=== PATIENT | male | born 1970 | race Caucasian/White ===

== ENCOUNTER 2021-01-23 05:40 | Inpatient (IN) ==
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
[2021-01-23] MEDS ORDERED: LR 15ML/HR IV SCH (06:00)
[2021-01-23] MEDS ORDERED: ACETAMINOPHEN 500 MG TAB PO SCH (06:00)
[2021-01-23] MEDS ORDERED: GABAPENTIN 900 MG DOSE PO SCH (06:00)
[2021-01-23] MEDS ORDERED: CeleBREX 200 MG CAP PO SCH (06:00)
[2021-01-23] MEDS ORDERED: ceFAZolin 2000MG 2,000 MG/15 ML SYR IV SCH (06:00)
[2021-01-23] MEDS ORDERED: MIDAZOLAM HCL 1 MG/ML 2ML VIAL ONE (06:53)
[2021-01-23] MEDS ORDERED: ROCURONIUM BROMIDE 10 MG/ML 5 ML VIAL IV ONE (06:53)
[2021-01-23] MEDS ORDERED: ePHEDrine sulfate 50 MG/ML SYR ONE (06:53)
[2021-01-23] MEDS ORDERED: GLYCOPYRROLATE 0.2 MG/ML VIAL ONE (06:53)
[2021-01-23] MEDS ORDERED: PROPOFOL IV EMULSION 10 MG/ML 100 ML VIAL IV ONE (06:53)
[2021-01-23] MEDS ORDERED: fentaNYL citrate 100 MCG/2 ML VIAL ONE (06:53)
[2021-01-23] MEDS ORDERED: NEOSTIGMINE METHYLSULFATE 1 MG/ML 10ML VIAL ONE (06:53)
[2021-01-23] MEDS ORDERED: PHENYLEPHRINE 100MCG/ML 5ML SYR ONE (06:53)
[2021-01-23] MEDS ORDERED: DEXAMETHASONE SOD INJ 4 MG/ML VIAL ONE (06:53)
[2021-01-23] MEDS ORDERED: PROPOFOL IV EMULSION 10 MG/ML 20 ML VIAL IV ONE (06:53)
[2021-01-23] MEDS ORDERED: ONDANSETRON INJ 2 MG/ML 2 ML VIAL ONE (06:53)
[2021-01-23] MEDS ORDERED: ePHEDrine sulfate 50 MG/ML AMP IV PRN (07:25)
[2021-01-23] MEDS ORDERED: HYDROmorphone INJ 2 MG/ML SYR/VIAL IV PRN (07:25)
[2021-01-23] MEDS ORDERED: fentaNYL citrate 100 MCG/2 ML VIAL IV PRN (07:25)
[2021-01-23] MEDS ORDERED: ONDANSETRON INJ 2 MG/ML 2 ML VIAL IV PRN ×2 (07:25→10:45)
[2021-01-23] MEDS ORDERED: ATROPINE SULFATE 0.1 MG/ML 10ML SYR IV PRN (07:25)
[2021-01-23] MEDS ORDERED: PROMETHAZINE HCL 6.25 MG in SODIUM CHLORIDE 0.9% 50 ML IV PRN (07:25)
--- NOTE | 2021-01-23 07:31 | History & Physical Bridge Note ---
Date of Service January 23, 2021 History & Physical Bridge Note I have examined the patient, reviewed the History & Physical and in the interval since the performance of the History & Physical I have noted the following changes of clinical significance: no changes noted
[2021-01-23 07:48] LABS: Partial Thromboplastin Time 26.8 Seconds (21.0-31.0)
[2021-01-23] MEDS ORDERED: KETAMINE 50 MG/5 ML SYRINGE ONE (07:57)
[2021-01-23] MEDS ORDERED: HYDROmorphone INJ 2 MG/ML SYR/VIAL ONE (08:01)
[2021-01-23] MEDS ORDERED: FLOSEAL HEMOSTATIC MATRIX 10ML TOP ONE (08:12)
--- NOTE | 2021-01-23 08:57 | Operative Report ---
Post Operative Report Pre & Post Diagnosis Operation Date: 01/23/21 07:45 Pre-Op Diagnosis: Spinal Stenosis, Cervical Region Post-Op Diagnosis: Spinal Stenosis, Cervical Region I identified the patient and participated in the time-out.: Yes Procedure Operation Date: 01/23/21 07:45 Actual Procedures #1 anterior cervical discectomy with bilateral foraminotomies C6-C7. #2 anterior arthrodesis C6-7. #3 placement 8 mm Spira cage filled with I factor C6-C7. #4 application 5 complete screws across C6-C7. Surgeon Alex Manley, Director Of Rehabilitation Nicole Carrera Estimated Blood Loss 10 Findings Consistent with Post-Op Diagnosis Specimens None Indications This is a 50-year-old male who presents above-mentioned anesthetic failing course of nonoperative care is here for the above-mentioned procedure. Description of Procedure Patient met with identified informed consent obtained. Patient was then taken to the operative suite underwent ablation placed in a supine position on a Jose F table with the head in the Garcia site head. All bony prominences well-padded eyes inspected to ensure no external pressure placed upon the. This point the anterior cervical spine was prepped and draped in a sterile fashion. The assistance of fluoroscopy identified the C6-C7 disc base and a transverse incision was placed along the right anterior aspect of the cervical spinal lines region. Blunt dissection with the assistance of bipolar electrocautery was performed down to and exposing the anterior cervical spine at C6-C7. Self- retaining retractors placed. Then performed a complete discectomy of C6-C7 out to the uncovertebral joints bilaterally. [place] distraction pins utilized to assist in visualization. I removed all posterior annular fibers longitudinal ligament bilateral foraminotomies performed. Endplates were then burred to subcortically bone and a 8 mm spiral cage filled with I factor tapped in position. Distracting apparatus was removed all anterior osteophytes burred to a smooth cortical surface and a 5 complete screws applied with the assistance of fluoroscopy. Incision was then copiously irrigated explored to ensure no damage to surrounding structures remaining bleeding. 10 round HOANG drain inserted. The incision was then closed with 2 Vicryl in a fashion of 4 Monocryl for final skin closure. Steri-Strip sterile dressings placed. Patient will continue PACU stable condition. Please note spinal cord monitoring visualized at the procedure no changes noted. Lastly Nicole Carrera was present at the entire procedure involved the patient positioning complex portions of the surgery and final skin closure. I attest to the content of the Intraoperative Record and any orders documented therein. Any exceptions are noted below.
--- NOTE | 2021-01-23 10:20 | Anesthesiology Progress Note ---
Date of Service January 23, 2021 Anesthesia Post Procedure Vital Signs Vital Signs: Temp Pulse Pulse Resp BP Pulse Ox 01/23/21 10:15 36.6 C 65 13 134/86 95 01/23/21 10:05 36.6 C 72 15 134/79 98 01/23/21 09:55 66 12 141/84 H 96 01/23/21 09:45 74 14 135/89 98 01/23/21 09:35 73 12 156/92 H 100 01/23/21 09:25 74 20 162/104 H 100 01/23/21 09:15 70 14 142/98 H 98 01/23/21 09:05 36.5 C 66 16 146/93 H 96 01/23/21 06:34 37.1 C 65 18 135/99 96 Pain Intensity Neck: Pain Intensity: 0 Transfer of Care Handoff Completed per policy Notes Mental Status: alert / awake / arousable Patient Amnestic to Procedure: Yes Nausea / Vomiting: adequately controlled Pain: adequately controlled Airway Patency, RR, SpO2: stable & adequate BP & HR: stable & adequate Hydration State: stable & adequate Anesthetic Complications: no major complications apparent
[2021-01-23] MEDS ORDERED: RACEPINEPHRINE 2.25% NEBU SOLN 0.5 ML VIAL INH PRN (10:45)
[2021-01-23] MEDS ORDERED: METOCLOPRAMIDE HCL INJ 5 MG/ML 2 ML VIAL IV PRN (10:45)
[2021-01-23] MEDS ORDERED: PROMETHAZINE HCL 12.5 MG in SODIUM CHLORIDE 0.9% 50 ML IV PRN (10:45)
[2021-01-23] MEDS ORDERED: dexAMETHasone 8 MG in SYRINGE 0 ML IV PRN (10:45)
[2021-01-23] MEDS ORDERED: ONDANSETRON 4 MG OD TAB PO PRN (10:45)
[2021-01-23] MEDS ORDERED: LORazepam 0.5 MG TAB PO PRN (10:45)
[2021-01-23] MEDS ORDERED: MAGNESIUM HYDROXIDE SUSP 30 ML UDC PO PRN (10:45)
[2021-01-23] MEDS ORDERED: ACETAMINOPHEN 500 MG TAB PO PRN (10:45)
[2021-01-23] MEDS ORDERED: bisacodyL 10 MG SUPP PR PRN (10:45)
[2021-01-23] MEDS ORDERED: ALUMINUM/MAGNESIUM SUSP 30 ML UDC PO PRN (10:45)
[2021-01-23] MEDS ORDERED: SOD PHOSPHATE/SOD BIPHOSPHATE ENEMA 132 ML BTL PR PRN (10:45)
[2021-01-23] MEDS ORDERED: diphenhydrAMINE Capsule 25 MG CAP PO PRN (10:45)
[2021-01-23] MEDS ORDERED: hydrOXYzine HCl 25 MG TAB PO PRN (10:45)
[2021-01-23] MEDS ORDERED: LACTATED RINGER'S 1,000 ML IV SCH (10:45)
[2021-01-23] MEDS ORDERED: NALOXONE HCL 0.4 MG/1 ML VIAL/CARP IV PRN (10:45)
[2021-01-23] MEDS ORDERED: FAMOTIDINE 20 MG TAB PO PRN (10:45)
[2021-01-23] MEDS ORDERED: oxyCODONE HCL IR 5 MG TAB (IMMEDIATE RELEASE) PO PRN (10:45)
[2021-01-23] MEDS ORDERED: HYDROmorphone INJ 1 MG/ML SYRINGE IV PRN (10:45)
[2021-01-23] MEDS ORDERED: LORazepam 0.5 MG/1 ML VIAL IV PRN (10:45)
[2021-01-23] MEDS ORDERED: traMADol HCL 50 MG TABLET PO PRN (10:45)
[2021-01-23] MEDS ORDERED: DO NOT ADMINISTER FLU VACCINE PRN (10:45)
[2021-01-23] MEDS ORDERED: DO NOT ADMINISTER PNEUMOCOCCAL VACCINE PRN (10:45)
[2021-01-23] MEDS ORDERED: ACETAMINOPHEN 1,000 MG/100 ML VIAL IV PRN (10:45)
[2021-01-23] MEDS ORDERED: HYDROmorphone INJ 0.5 MG/0.5 ML SYR IV PRN (10:45)
[2021-01-23] MEDS: GABAPENTIN 800 MG TAB PO SCH ×4 (11:00→20:31)
--- NOTE | 2021-01-23 12:48 | Fluoroscopy Report ---
INTRAOPERATIVE RADIOGRAPHS CLINICAL HISTORY: C6-C7 spinal fusion. Fluoroscopy time: 10 seconds. FINDINGS: 2 spot fluoroscopic views of the cervical spine are presented. There has been discectomy at C6-C7 with anterior fusion at this level. The orthopedic hardware appears intact. An endotracheal tu be is in place. A surgical drain is noted. IMPRESSION: Intraoperative images from cervical spinal fusion surgery as above. Electronically signed by: Alfredito Farah M.D. 01/23/2021 12:46 PM
[2021-01-23] MEDS: MULTIVITAMIN TAB PO SCH (12:58)
[2021-01-23] MEDS: LITHIUM CARBONATE SLOW REL 300 MG TAB PO SCH ×2 (12:59→20:30)
[2021-01-23] MEDS: CITALOPRAM 40 MG TAB PO SCH (13:00)
[2021-01-23] MEDS: AMPHETAMINE ASP/SULF/DEXTRAMPH 10 MG TAB PO SCH (14:20)
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
[2021-01-23] MEDS: ceFAZolin 2000MG 2,000 MG/15 ML SYR IV SCH ×2 (15:33→23:33)
[2021-01-23] MEDS ORDERED: PANTOprazole 40 MG TAB PO SCH (21:00)
[2021-01-23] MEDS ORDERED: DOCUSATE SODIUM/SENNA 50/8.6MG TAB PO SCH (21:00)
[2021-01-23] MEDS ORDERED: clonazePAM 1 MG TAB PO SCH (21:00)
[2021-01-23] MEDS ORDERED: MIRTAZAPINE TAB 15 MG TAB PO SCH (21:00)
[2021-01-24] MEDS ORDERED: POLYETHYLENE (MIRALAX) 17 GM PACK PO SCH (06:00)
[2021-01-24 06:32] LABS: Hematocrit (blood only) 40.9 % (42-52); Hemoglobin 14.1 g/dL (14.0-18.0); Mean Corpuscular Hemoglobin 32.1 pg (25-34); Mean Corpuscular Hgb Conc 34.5 g/dL (32-36); Mean Corpuscular Volume 93.2 fL (80-100); Mean Platelet Volume 9.4 fL (7.4-10.4); Platelet Count 349 K/uL (130-400); RDW Coefficient of Variation 12.9 % (11.5-14.5); RDW Standard Deviation 43.9 fL (36.4-46.3); Red Blood Count 4.39 M/uL (4.7-6.1); White Blood Count 20.65 K/uL (4.8-10.8)
[2021-01-24 07:07] LABS: BUN Creatinine Ratio 11.2 (10-20); Calcium 9.5 mg/dl (8.5-10.1); Creatinine Clr Calc Pharmacy 82.6 ml/min; Est GFR (African American) 86.4 ml/min; Est GFR (Non-African American) 74.6 ml/min; Potassium 4.2 mmol/L (3.5-5.1)
[2021-01-24] MEDS: CITALOPRAM 40 MG TAB PO SCH (08:51)
[2021-01-24] MEDS: GABAPENTIN 800 MG TAB PO SCH (08:51)
[2021-01-24] MEDS: AMPHETAMINE ASP/SULF/DEXTRAMPH 10 MG TAB PO SCH (08:51)
[2021-01-24] MEDS: MULTIVITAMIN TAB PO SCH (08:51)
[2021-01-24] MEDS: LITHIUM CARBONATE SLOW REL 300 MG TAB PO SCH (08:52)
--- NOTE | 2021-01-24 10:11 | Discharge Summary ---
Date of Service January 24, 2021 Admission HPI Per Admitting Provider This is a 50-year-old male who presents with progressive severe cervicalgia and left arm pain. Is failed extensive course of nonoperative care. Describes pain rating into the interscapular region down his arm into his hand. Medications provided no relief as well as no relief from therapy. He describes strength deficit and coordination issues affecting the left hand. Principal Diagnosis Cervical radiculopathy Discharge Data Allergies Allergy/AdvReac Type Severity Reaction Status Date / Time No Known Allergies Allergy Verified 01/23/21 06:22 Consultations 01/23/21 10:45 Consult Hospitalist Routine Procedures Performed Operation Date: 01/23/21 07:45 Actual Procedures p C6-C7 Anterior Cervical Discectomy and Fusion, Spinal Cord Monitoring(Not Applicable) - Alex Manley DO Ordered Studies 01/23/21 07:45 FL cervical 2-3V Routine Hospital Course (1) Cervical stenosis of spinal canal: Patient underwent anterior cervical discectomy fusion trial exhausting orthopedic for postop labor postop day 1 he was up and ambulating excellent strength testing pain well controlled. Swallowing without difficulty. HOANG drain decreasing appropriately. Subsequently discharged home. Discharge orders instructions were on the chart for further review. Total Time Total Time Spent Total Time Spent (In Minutes): 20 minutes Discharge Plan Discharge Items Patient Disposition: Home - Self-Care Reason For Visit: Spinal Stenosis, Cervical Region Discharge Diagnosis: Cervical radiculopathy Activity: As commented below Non-emergency contact: Primary Care Provider Call non-emergency contact if: you have any medication questions Follow-up/Referrals: Riky Phelps MD [Primary Care Provider] - Diet: Regular Addtl Attending Provider Instructions: ACTIVITY RECOMMENDATIONS: SELF CARE INSTRUCTIONS AFTER CERVICAL FUSIONS 1. No smoking. Smoking drastically decreases the chance of a solid fusion. 2. No bending, lifting more than 5 pounds, or twisting (roll like a log when turning in bed). 3. You may shower 3 days after surgery. Thoroughly dry wound. Do not soak in the tub. 4. Cervical collar: Must be worn at all times including sleeping. You may remove the brace only to bath, eat and if you are sitting in a recliner. 5. Please walk as much as you can for exercise. Gradually increase the distance that you walk as your endurance increases. SPECIAL CARE INSTRUCTIONS: VERY IMPORTANT TO READ AND REVIEW A. Do not take any anti-inflammatory medications (i.e. Indocin, Advil, Aspirin, Naprosyn, Aleve, Motrin, etc.) as these may inhibit the chance of a solid fusion. Tylenol is okay to take. B. Your surgical incision has been closed with a cosmetic suture under the skin that will dissolve in about 6 weeks. In 14 days, you can use a pair of clean scissors and cut the suture that is left outside of the skin at the ends of your incision. C. Complications are uncommon, but please contact us if you have any signs or symptoms of: 1. wound infection (fever higher than 102.5 degrees F, redness, separation of wound, drainage, or increasing pain from the incision) 2. blood clots in legs (pain, swelling, redness and warmth in legs) 3. urinary tract infection (fever higher than 102.5 degrees, burning upon urination or increased frequency of urination) 4. nerve problems (inability to walk on your toes or heels, numbness, loss of bowel or bladder control) 5. any other symptoms that concern you. D. Please call the office at if you have any concerns or questions about your operation or recovery. MANAGING PAIN AFTER SPINAL SURGERY 1. Narcotic medication is intended for short-term use and will be provided for surgical pain. Surgical pain usually lasts for a period of 4-6 weeks. Narcotic medication includes Percocet, Vicodin, Darvocet, Tylenol #3 or Lortab. 2. Longer-term pain is more appropriately treated with non-narcotic medication such as Tylenol ES. 3. Muscle spasm is not appropriately treated with narcotics. Muscle relaxers such as Soma, Flexeril or Skelaxin can be used along with Tylenol ES. 4. Remember that we all live with some "aches and pains". This is not unusual or uncommon after an injury or as we get older. 5. We will provide appropriate medication within the normal guidelines of their prescribed use. We will also be very cautious and aware of potential abuse and extended duration of patients' medication needs. 6. Please allow 2-3 days to process refills. Prescriptions will not be mailed but must be picked up at the office. FOLLOW UP VISIT: Keep your scheduled follow-up appointment. Any questions, please call the office at . Pending Studies at Discharge: No Stand-Alone Forms: My [facility], Smoking Cessation Medications and DC Order Prescriptions: New tramadol 50 mg tablet 50 mg PO Q6H PRN (Reason: pain, moderate) Qty: 20 RF: 0 oxycodone 5 mg tablet 5 mg PO Q6H PRN (Reason: pain, severe) Qty: 20 RF: 0 Continued multivitamin Tablet 1 tab PO DAILY RF: 0 citalopram 40 mg Tablet 40 mg PO QAM RF: 0 clonazepam 1 mg Tablet 1 mg PO HS RF: 0 tramadol 50 mg Tablet 50 mg PO Q6H PRN (Reason: Pain) RF: 0 gabapentin 800 mg Tablet 800 mg PO TID RF: 0 lithium carbonate 300 mg Capsule 600 mg PO BID RF: 0 esomeprazole magnesium [Nexium] 40 mg Capsule,Delayed Release(Dr/Ec) 40 mg PO HS RF: 0 dextroamphetamine-amphetamine [Adderall] 20 mg Tablet 20 mg PO BID RF: 0 mirtazapine [Remeron] 15 mg Tablet 15 mg PO HS RF: 0 garlic Tablet 1,000 mg PO DAILY RF: 0 Discharge Orders: Discharge Order (Routine); Ordered 01/24/21 Ordered By: Alex Manley Admission Data Admit Date/Time: 01/23/21 09:01 Attending Provider: Alex Manley Admit Provider: Alex Manley Primary Care Provider: Riky Phelps. Other Providers: Ethel Meyer ; Marques Luther
--- NOTE | 2021-01-24 10:50 | Hospitalist Progress Note ---
Date of Service January 24, 2021 Assessment & Plan (1) Cervical stenosis of spinal canal: Plan: - POD#1 C6-C7 ACDF by Dr. Manley - activity and wound care orders as per ortho - pain control with bowel regimen - PT/OT - monitor H/H for acute blood loss anemia and transfuse blood products PRN - EBL 10 cc -Hgb stable at 14.1, WBC 20 K -likely due to steroids, no signs of infection -Stable for discharge today by spine Ortho (2) Attention deficit disorder (ADD): (3) Bipolar disorder: Plan: -Stable, continue home medications (4) DVT prophylaxis: Plan: -TEDs and SCDs as per spine Ortho Thank you for this consultation. We will follow the patient with you during their hospital stay. You can reach a member of the [facility] Hospitalist Team 19/11 via the [facility] Hospitalist role in [place] [employer]. Admission and Anticipated Discharge Date Admission Date: January 23, 2021 Supervising Physician Co-Signing Physician Notes Patient is seen and examined at bedside. Sitting in chair during my encounter. Denies any neck pain at surgical site. Also denies any dysphagia, odynophagia, shortness of breath, chest pain. On exam patient is moderately built and nourished, no apparent distress, normocephalic atraumatic, EOMI, Neck +collar, surgical site in dressing, normal breath sounds, clear to auscultation, S1-S2, no murmur, no pedal edema, abdomen soft, nontender, normal bowel sounds, alert, awake, oriented, grossly no focal deficits. Patient is consulted for postop medical management. POD #1 Leukocytosis secondary to the steroids. No obvious source of infection. Co ntinue home medications for ADD, bipolar disorder. Monitor for postop anemia. Continue bowel regimen to prevent constipation. Activity, wound care, DVT prophylaxis, pain control as per primary team. I personally reviewed the record. Patient is interviewed and examined at bedside. Patient's care is coordinated with Ethel Meyer [employer]. Please refer to the documentation above for details of patient's presentation and for discussion of other issues. Subjective Patient seen and examined. Sitting up in the chair having breakfast. Reports feeling well, offers no complaints. Pain is well controlled. Denies difficulty swallowing and shortness of breath. Denies upper extremity weakness, numbness, tingling. No chest pain. Denies lightheadedness and dizziness. No abdominal pain or nausea. Physical Exam Constitutional: WD/WN, vitals as above Neck: S/p neck surgery, anterior surgical dressing dry and intact, drain in place draining serosanguineous drainage, c-collar remains in place Respiratory: normal respiratory effort, lungs clear to auscultation Cardiovascular: Rate/Rhythm: regular rate and regular rhythm Vessels: normal peripheral pulses Extremities: no edema Gastrointestinal (Abdomen): Inspection/Auscultation: normal bowel sounds Percussion/Palpation: abdomen soft; abdomen nontender Musculoskeletal: no cyanosis or clubbing, extremities motor strength 5/5 Skin: no rashes, warm and dry Neurologic: no focal motor deficits Psychiatric: A+Ox3, euthymic affect Results & Data Results & Data ([facility]) Vital Signs (Past 12 Hours) Vital Signs Temp Pulse Pulse Pulse Resp BP BP 01/24/21 10:16 37.3 C 80 80 76 16 114/73 153/92 H 01/24/21 09:30 37.3 C 16 153/92 H 01/24/21 08:15 80 18 01/24/21 07:33 36.8 C 62 16 121/79 01/24/21 05:30 36.5 C 61 18 129/82 01/24/21 03:30 36.4 C L 64 18 125/75 01/24/21 02:52 76 16 01/24/21 01:30 36.7 C 67 18 124/78 01/23/21 23:29 36.8 C 79 18 118/78 01/23/21 22:59 72 18 Pulse Ox 01/24/21 10:16 97 01/24/21 09:30 97 01/24/21 08:15 98 01/24/21 07:33 98 01/24/21 05:30 99 01/24/21 03:30 97 01/24/21 02:52 98 01/24/21 01:30 97 01/23/21 23:29 97 01/23/21 22:59 97 Laboratory Results Short CBC 01/24/21 Range/Units 05:56 WBC 20.65 H (4.8-10.8) K/uL Hgb 14.1 (14.0-18.0) g/dL Hct 40.9 L (42-52) % Plt Count 349 (130-400) K/uL BMP 01/24/21 05:56 Sodium 137 Potassium 4.2 Chloride 104 Carbon Dioxide 28 BUN 13 Creatinine 1.14 Glucose 128 H Calcium 9.5
== END 2021-01-24 11:06 | disposition home or self-care (01) | DRG 473 ==
LOC: ASU 05:40 → 3E 09:01